=== PATIENT | female | born 1970 | race Caucasian/White ===

== ENCOUNTER 2024-09-12 17:01 | Emergency (ER) | payer MEDICAID, SELFPAY ==
--- NOTE | ~2024-09-12 | CT_ITS ---
EXAMINATION: CT HEAD WITHOUT CONTRAST CT FACIAL BONES WITHOUT CONTRAST CT CERVICAL SPINE WITHOUT CONTRAST CLINICAL INFORMATION: Trauma. COMPARISON: None available. TECHNIQUE: Imaging was performed from the skull base to vertex without intravenous administration of contrast. In addition, helical noncontrast CT imaging was acquired through the cervical spine and facial bones and source images were reviewed along with axial reconstructions and sagittal and coronal MPRs. This CT examination was performed using dose optimization techniques as appropriate, variously including the following: *Automated exposure control. *Adjustment of mA and/or kV according to patient size (this includes techniques or standardized protocols for targeted exams where dose is matched to indication/reason for exam; i.e. extremities or head). *Use of iterative reconstruction technique. DLP: 1369 mGy-cm FINDINGS: Head: There is no evidence of acute intracranial hemorrhage or edematous territorial infarction. Palacios-white matter differentiation is preserved. Scattered and partially confluent hypoattenuation in the periventricular and deep white matter are consistent with moderate microangiopathy. Proportional prominence of the ventricles and sulcal spaces without evidence of obstructive hydrocephalus. No abnormal mass effect or midline shift. No extra-axial fluid collections. Mild calcific atherosclerotic disease of the intracranial internal carotid arteries. No hyperdense vessel sign. Mild subgaleal hematoma along the right aspect of the frontal bone extending into the right periorbital soft tissues, measuring up to 0.6 cm in depth. No acute osseous calvarial abnormalities. Maxillofacial Bones: No evidence of maxillofacial bone fractures. The zygomatic arches remain intact. No nasal bone fracture. The nasal septum remains midline. No evidence of mandibular or maxillary fracture. The mandibular condyles remain well-seated in their respective temporal articular grooves. Normal appearance of the intraconal and extraconal fat. No evidence of traumatic injury to the extraocular musculature or globes. Mild mucosal thickening of the paranasal sinuses. The mastoid air cells and middle ear cavities are clear. No layering fluid collections. Mild periapical lucency associated with the maxillary right canine. Cervical Spine: The atlantooccipital and atlantoaxial articulations remain well aligned. Moderate degenerative arthropathy of the atlantodental articulation. Straightening of the normal cervical lordosis. Otherwise, there is anatomic alignment of the vertebral bodies and posterior elements. No evidence of acute fracture or subluxation. The vertebral body heights are maintained. Moderate degenerative disc disease from C5-C7 with disc-osteophyte complex formation. Mild degenerative disc disease at all additional levels. There appears to be at least mild spinal canal stenosis at C5-C6. Facet and uncovertebral joint arthropathy leads to osseous encroachment on the neural foramina from C3-C7. There is no prevertebral soft tissue swelling. The thyroid gland and remaining cervical soft tissues are within normal limits. The lung apices demonstrate no abnormalities. CT/CT cervical spine wo IV con IMPRESSION: 1. No evidence of acute intracranial hemorrhage or edematous territorial infarction. Moderate underlying microangiopathy and generalized cerebral volume loss. 2. No evidence of acute fracture or traumatic subluxation of the cervical spine. Moderate multilevel degenerative spondyloarthropathy of the cervical spine. Most notably on this limited exam without intrathecal contrast, there appears to be at least mild spinal canal stenosis at C5-C6. 3. Small right frontal scalp/periorbital hematoma. No evidence of acute fracture of the maxillofacial bones. Electronically signed by: Sadi Noe DO 09/12/2024 08:11 PM [facility]
[2024-09-12 17:28] VITALS: BP 112/77; BP 114/78; PULSE 89; PULSE 94; RESP 18; TEMP 36.5; O2SAT 94; O2SAT 95; BMI 25.7
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
[2024-09-12] MEDS: OLANZapine 10 MG VIAL IM (17:45)
[2024-09-12 18:21] VITALS: PULSE 101
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
[2024-09-12 18:28] VITALS: BP 162/93; PULSE 99; RESP 18; O2SAT 94
[2024-09-12 19:30] VITALS: BP 132/72; PULSE 91; RESP 12; O2SAT 96
[2024-09-12 20:57] LABS: Appearance Urine Clear; Color Urine Yellow; Glucose Urine UA Negative (Negative); Leukocyte Esterase Urine Negative (Negative); Nitrite Urine Negative (Negative); PH 5.5 (5.0-9.0); Specific Gravity - Urine <= 1.005 (1.005-1.025); UMIC TRIGGER UACC YES; Urine Blood Moderate (2+) (Negative); Urine Ketones Negative (Negative); Urine Protein Negative (Neg-Trace)
[2024-09-12 21:08] LABS: Amphetamine Screen Urine Not Detected (Not Detect); Bacteria Urine None Seen (None Seen); Barbiturates, Urine Not Detected (Not Detect); Benzodiazepines Screen Urine Not Detected (Not Detect); Buprenorphine Scr Not Detected (Not Detect); Cannabinoid Screen Urine Not Detected (Not Detect); Cocaine Screen Urine Not Detected (Not Detect); Fentanyl, urine Not Detected (Not Detect); Hyaline Casts Urine 0-2 /LPF (0-2); Methadone Screen, Urine Not Detected (Not Detect); Opiate Screen Urine Not Detected (Not Detect); Oxycodone Screen Urine Not Detected (Not Detect); Phencyclidine Screen Urine Not Detected (Not Detect); RBC Urine 0-2 /HPF (0-2); Squamous Epithelial Cell Urine 0-2 /HPF (0-2); WBC Urine 0-5 /HPF (0-5)
[2024-09-12 21:58] VITALS: BP 117/65; PULSE 86; RESP 18; TEMP 36.7; O2SAT 97
--- NOTE | 2024-09-12 22:17 | PC.NURSE ---
Pt assisted to bedside commode.
[2024-09-13 00:30] VITALS: BP 119/73; PULSE 84; RESP 16; TEMP 37.2; O2SAT 97
[2024-09-13 02:16] VITALS: BP 113/68; PULSE 95; RESP 16; TEMP 36.6; O2SAT 97
--- NOTE | 2024-09-13 02:29 | PC.NURSE ---
pt is sleeping at this time, no sign of distress, laceration above right eye has bleeding controlled.
[2024-09-13 05:40] VITALS: BP 126/78; PULSE 98; RESP 18; TEMP 36.3; O2SAT 97
[2024-09-13 12:29] VITALS: BP 126/78; PULSE 98; RESP 18; TEMP 36.3; O2SAT 97
== END 2024-09-13 12:30 | disposition home or self-care (01) ==
PROVIDERS: Emergency Provider Emergency Medicine Emergency Medical Services
DX: F10.120 Alcohol abuse with intoxication, uncomplicated (principal); Y90.9 Presence of alcohol in blood, level not specified; S00.11XA Contusion of right eyelid and periocular area, initial encounter; S00.211A Abrasion of right eyelid and periocular area, initial encounter; V48.4XXA Person boarding or alighting a car injured in noncollision transport accident, initial encounter; Y93.89 Activity, other specified; Y92.9 Unspecified place or not applicable; Y99.9 Unspecified external cause status
CPT/HCPCS: 70450; 70486; 72125; 80307; 81001; 96372; 99285; J2359

== ENCOUNTER 2024-09-13 13:23 | Emergency (ER) | payer MEDICAID, SELFPAY ==
--- NOTE | 2024-09-13 | ECG_ITS ---
Test Reason : Admitted Blood Pressure : / mmHG Vent. Rate : 090 BPM Atrial Rate : 090 BPM P-R Int : 122 ms QRS Dur : 070 ms QT Int : 344 ms P-R-T Axes : 064 065 065 degrees QTc Int : 420 ms Normal sinus rhythm Normal ECG No previous ECGs available Referred By: Jayleen Bobo Electronically Signed By:Christiano Catherine
[2024-09-13 13:32] VITALS: BP 177/95; PULSE 117; RESP 16; TEMP 36.6; O2SAT 98; BMI 21.5
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
[2024-09-13 14:11] VITALS: BP 192/101; PULSE 119; RESP 18; TEMP 36.8; O2SAT 96
--- NOTE | 2024-09-13 14:26 | MHC.RECOVRN ---
Received Addiction Medicine consult for etoh, seeking detox. Consult deferred due to SI. CARE Team to see pt prior to recovery.
[2024-09-13 14:39] LABS: MANUAL DIFF FLAG NO
[2024-09-13 14:40] LABS: Basophils Absolute Auto 0.1 X10*3/uL (0.0-0.2); Basophils Percent Auto 0.7 % (0-2); Hematocrit 42.4 % (37.0-47.0); Imm Gran Abs Auto 0.02 X10*3/uL (0.00-0.03); Imm Gran Pct Auto 0.3 % (0.0-0.4); Lymphocytes Absolute Auto 1.1 X10*3/uL (1.2-4.9); Lymphocytes Percent Auto 15.8 % (20-40); Mean Corpuscular HGB Conc 35.4 g/dl (31.0-35.0); Mean Corpuscular Hemoglobin 33.9 pg (27.0-33.0); Mean Corpuscular Volume 95.9 fL (80.0-98.0); Monocytes Absolute Auto 0.4 X10*3/uL (0.1-1.2); Monocytes Percent Auto 5.5 % (2-11); Neutrophils Absolute Auto 5.5 x10*3/uL (2.0-8.3); Neutrophils Percent Auto 77.7 % (45-73); Platelet Count 166 X10*3/uL (160-400); Red Blood Count 4.42 X10*6/uL (4.20-5.50); Red Cell Distribution Width 12.2 % (11.0-16.0); White Blood Count 7.1 X10*3/uL (4.8-10.8)
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
[2024-09-13 14:55] LABS: Ethanol < 10 mg/dL
[2024-09-13 14:57] LABS: Alanine Aminotransferase 30 U/L (0-31); Albumin Level 4.8 g/dL (3.5-5.0); Alkaline Phosphatase 49 U/L (39-117); Anion Gap 18 (12-20); Aspartate Amino Transferase 59 U/L (5-31); Bilirubin Total 0.8 mg/dL (0.0-1.0); Blood Urea Nitrogen 14 mg/dL (9-16); Calcium 9.1 mg/dL (8.4-10.2); Carbon Dioxide 23 mmol/L (22-29); Chloride 102 mmol/L (96-108); Creatinine Clr Calc Pharmacy 69.6; Estimated Glomerular Filt Rate > 60; Glucose Random 222 mg/dL (60-115); Lipase 27 U/L (8-78); Magnesium 1.6 mg/dL (1.6-2.6); Potassium 4.1 mmol/L (3.3-5.1); Sodium 139 mmol/L (135-145); Total Protein 7.9 g/dL (6.5-8.0)
[2024-09-13 15:00] LABS: Acetaminophen LAB < 3 mcg/mL (<30); Salicylate < 5.0 mg/dL (15-30)
--- NOTE | 2024-09-13 15:38 | PC.NURSE ---
Assumed care of patient at 1445, patient appears to be in no apparent distress this afternoon, CIWA score of 7, resting comfortably in room at this time
[2024-09-13 16:08] LABS: Appearance Urine Clear; Color Urine Yellow; Glucose Urine UA 250 mg/dL (Negative); Leukocyte Esterase Urine Negative (Negative); Nitrite Urine Negative (Negative); PH 5.5 (5.0-9.0); Specific Gravity - Urine 1.025 (1.005-1.025); UMIC TRIGGER UACC YES; Urine Blood Large (3+) (Negative); Urine Ketones >=160 mg/dL (Negative); Urine Protein 30 (1+) mg/dL (Neg-Trace)
[2024-09-13 16:11] LABS: Bacteria Urine None Seen (None Seen); Hyaline Casts Urine 0-2 /LPF (0-2); WBC Urine 0-5 /HPF (0-5)
[2024-09-13] MEDS: LORazepam 1 MG TABLET PO (16:13)
[2024-09-13 16:18] LABS: Amphetamine Screen Urine Not Detected (Not Detect); Barbiturates, Urine Not Detected (Not Detect); Benzodiazepines Screen Urine Not Detected (Not Detect); Buprenorphine Scr Not Detected (Not Detect); Cannabinoid Screen Urine Not Detected (Not Detect); Cocaine Screen Urine Not Detected (Not Detect); Fentanyl, urine Not Detected (Not Detect); Methadone Screen, Urine Not Detected (Not Detect); Opiate Screen Urine Not Detected (Not Detect); Oxycodone Screen Urine Not Detected (Not Detect); Phencyclidine Screen Urine Not Detected (Not Detect)
[2024-09-13 16:20] LABS: Glucose, Whole Blood 205 mg/dL (60-115)
[2024-09-13 16:21] LABS: Prothrombin Time Whole Bld POC 35.2 sec (11.1-13.5); ~PT, ~INR - Anti Coag Clinic 2.9 (0.9-1.1)
[2024-09-13 17:11] LABS: UPreg QC Valid YES; Urine Pregnancy NEGATIVE (NEGATIVE)
--- NOTE | 2024-09-13 18:00 | MHC.CARE ---
Pt has been accepted to [address] [place] [address] Cueto, ETA BREE, no n2n required
[2024-09-13 19:50] VITALS: BP 150/90; PULSE 90; RESP 18; TEMP 37; O2SAT 99
== END 2024-09-13 19:53 ==
PROVIDERS: Physician Assistant; Physician Assistant Medical; Emergency Provider Student in an Organized Health Care Education/Training Program; PCP Nurse Practitioner
DX: F10.20 Alcohol dependence, uncomplicated (principal); Y90.0 Blood alcohol level of less than 20 mg/100 ml; R45.851 Suicidal ideations; Z51.81 Encounter for therapeutic drug level monitoring; Z79.899 Other long term (current) drug therapy; Z71.41 Alcohol abuse counseling and surveillance of alcoholic
CPT/HCPCS: 36415; 80053; 80143; 80179; 80307; 81001; 81025; 82947; 83690; 83735; 85025; 85610; 93005; 99285

== ENCOUNTER → 2024-09-13 16:54 | Outpatient (BNV) | payer MEDICAID, SELFPAY | PROVIDERS: Emergency Provider Student in an Organized Health Care Education/Training Program; PCP Nurse Practitioner; Visit Provider Internal Medicine Cardiovascular Disease | DX: R45.851 Suicidal ideations (principal); F10.20 Alcohol dependence, uncomplicated | CPT/HCPCS: 93010 ==

== ENCOUNTER 2025-06-29 16:07 | Emergency (ER) | payer MEDICAID, SELFPAY ==
[2025-06-29 16:42] VITALS: BP 139/60; PULSE 75; RESP 16; TEMP 36.8; O2SAT 95; BMI 22.7
--- NOTE | 2025-06-29 16:48 | ED_ITS ---
HPI - General Adult General Chief complaint: General Medical Stated complaint: med clearance Time Seen by Provider: 06/29/25 17:21 Source: patient and RN notes reviewed Mode of arrival: ambulatory Limitations: no limitations History of Present Illness ED Provider: María Pastor PA-C HPI narrative: This is a 54-year-old female, with a past medical history of alcohol use disorder, who presents emergency department from [facility] and was sent to the emergency room for ?medical clearance? as she went to the [facility] and did a Breathalyzer test which she failed and needs medical clearance to return back to the [facility]. She states that she has not drank in over 9 months. No other drug use. She states that she is feeling well, no current complaints. MD complaint: U tox Relieving factors: none Exacerbating factors: none Associated symptoms: denies other symptoms Treatments prior to arrival: none Related Data Home Medications ?Medication ?Instructions ?Recorded ?Confirmed bupropion HCl 150 mg tablet,12 hr 150 mg PO BID 09/13/24 sustained-release diclofenac sodium 1 % topical gel 1 inch topical BID P RN pain 09/13/24 09/13/24 hydroxyzine HCl 50 mg tablet 50 mg PO TID PRN anxiety 09/13/24 09/13/24 metformin 1,000 mg tablet 1,000 mg PO BID 09/13/2403/02 omeprazole 20 mg capsule,delayed 20 mg PO QAM 09/13/24 09/13/24 release sertraline 100 mg tablet 100 mg PO DAILY 09/13/2403/02 simvastatin 20 mg tablet 20 mg PO BEDTIME 09/13/24 trazodone 100 mg tablet 100 mg PO BEDTIME 09/13/24 1 11/14/23 Allergies Allergy/AdvReac Type Severity Reaction Status Date / Time No Known Allergies Allergy Verified 06/29/25 16:46 Review of Systems Review of Systems: Constitutional : No Fever, No Chills ENT/Mouth : No sore throat, No Rhinorrhea Eyes: No Eye Pain, No Swelling, No Redness Cardiovascular : No Chest Pain, No SOB Respiratory : No Cough, No Sputum Gastrointestinal : No Nausea, No Vomiting, No Diarrhea, No abdominal Pain Genitourinary : No Dysuria, No Hematuria Musculoskeletal : No joint pain, No Myalgias, No Joint Swelling Skin : No Skin Lesions Neuro : No Weakness, No Numbness, No Headache All other systems reviewed and are negative Yes all other systems are reviewed and are negative Constitutional: Constitutional: Reports as per [facility] Past Medical History Attestation statement: The following information was validated with the patient. Social History Social History Alcohol intake: current Alcohol intake frequency: 3 or more drinks per day Alcohol type: hard liquor Advance Directives: No Advance Directives Information Provided: No Do you have a plan to hurt others: No Plan Physical Exam ED Exam Exam: General: Awake, alert, and oriented X3. No acute distress. HEENT: Normal inspection CVS: Normal heart rate and rhythm. Pulses normal. Respiratory: No respiratory distress Skin: Warm, dry, no rashes noted to exposed skin. Normal skin color. Normal skin turgor. Extremities: Normal to inspection Neuro: Oriented X 3. No motor deficit. No sensory deficit. Vital Signs: Vital Signs - 24 hr 06/29/25 16:42 06/29/25 18:31 Temperature 98.3 F 98.1 F Pulse Rate 75 72 Respiratory Rate 16 16 Blood Pressure 139/60 132/58 L Pulse Oximetry 95 96 Oxygen Delivery Method Room Air Room Air BMI result Body Mass Index 22.7 Medical Decision Making Medical Decision Making MDM Narrative: This is a 54-year-old female, with a past medical history of opioid use disorder, who presents emergency department from [facility] for medical clearance. She states that she had a positive Breathalyzer test and they are requesting a drug screen and etoh level. Patient is well-appearing, speaking in full sentences, under no acute distress. At this time, she is clinically sober. Will obtain ethyl alcohol level, as well as U tox. 7:00 PM 06/29/2025 (María Pastor PA-C): Patient did test positive for alcohol, alcohol level of 103. She is clinically sober, no indication for further workup at this time as she has no current complaints. Discussed results with patient. She has no current concerns. No other complaints or concerns at this time. Differential Diagnosis Differential Diagnoses: The differential diagnosis associated with the presentation includes Alcohol use disorder, substance use, polysubstance abuse, depression, anxiety Lab Data [facility] Lab Attestation statement: I reviewed the patient's lab results. See above Labs: Lab Results 06/29/25 06/29/25 Range/Units 17:05 17:20 Urine Opiates Screen Not Detected (Not Detect) Ur Buprenorphine Scrn Not Detected (Not Detect) ng/mL Ur Oxycodone Screen Not Detected (Not Detect) ng/mL Urine Methadone Screen Not Detected (Not Detect) ng/mL Urine Fentanyl Screen Not Detected (Not Detect) Ur Barbiturates Screen Not Detected (Not Detect) Ur Phencyclidine Scrn Not Detected (Not Detect) Ur Amphetamines Screen Not Detected (Not Detect) U Benzodiazepines Scrn Not Detected (Not Detect) Urine Cocaine Screen Not Detected (Not Detect) U Marijuana (THC) Screen Not Detected (Not Detect) Ethyl Alcohol 103 mg/dL Discharge Plan Discharge Clinical Impression: Alcohol use disorder Patient Disposition: Home, Self-Care Instructions: Alcohol Use Disorder (ED) Additional Instructions: You were seen in the emergency department after being sent here from the emergency room for medical clearance. Your ethanol level was 103, which is a positive result. Your urine drug screen did not test positive for any illicit substances. At this point, you are medically cleared, there is no indication for us to further observe you, please follow-up with Diane, please return with any new or worsening symptoms. If any symptoms including but not limited to severe chest pain or shortness of breath occur, please seek emergent care. Prescriptions: No Action bupropion HCl 150 mg tablet sustained-release 12 hr 150 mg PO BID sertraline 100 mg tablet 100 mg PO DAILY hydroxyzine HCl 50 mg tablet 50 mg PO TID PRN (Reason: anxiety) trazodone 100 mg tablet 100 mg PO BEDTIME simvastatin 20 mg tablet 20 mg PO BEDTIME metformin 1,000 mg tablet 1,000 mg PO BID omeprazole 20 mg capsule,delayed release(DR/EC) 20 mg PO QAM diclofenac sodium 1 % gel 1 inch topical BID PRN (Reason: pain) Interventions: ED Discharge Assessment Last Done: 06/29/25 18:31 Discharge Date/Time: 06/29/25 18:32 Print Language: Choose Not To Answer
--- OUTSIDE RECORDS SUMMARY | 2025-06-29 17:27 | XMS_ITS | Clinical Summary ---
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 Name Role Phone Jace Meadows TU Primary Care Provider [phone] Source Comments PLEASE NOTE, if this patient is a minor, it may be UNLAWFUL to discuss sensitive information that is contained in these records (such as FAMILY PLANNING, MENTAL HEALTH or SUBSTANCE ABUSE) with the minor patient's parent or other person without the patient's specific authorization.[facility] Allergies Active Allergy Reactions Criticality Noted Date Comments Oxycodone-Acetaminop hen Hives,Nausea and Vomiting 03/20/2015 Other reaction(s): [D]Nausea and vomiting Medications ibuprofen 600 mg tabletIndications: Bilateral adhesive capsulitis of shoulders,Chronic bilateral low back pain with bilateral sciatica,Primary osteoarthritis of both knees,Chronic joint pain Take 1 Tablet by mouth 4 (four) times daily as needed for pain 120 Tablet 2 06/08/20 23 Active naltrexone (DEPADE) 50 mg tabletIndications: H/O ETOH abuse Take 1 Tablet by mouth once daily 90 Tablet 1 01/30/20 24 Active acetaminophen (TYLENOL) 500 mg tabletIndications: Bilateral adhesive capsulitis of shoulders,Chronic bilateral low back pain with bilateral sciatica,Cervicoge kathrine headache Take 1 Tablet by mouth every 6 (six) hours as needed for pain 120 Tablet 2 01/30/20 24 Active buPROPion SR (WELLBUTRIN SR) 150 mg 12 hr tabletIndications: Current moderate episode of major depressive disorder without prior episode (CMS & HHS-HCC) Take 1 Tablet by mouth 2 (two) times daily 180 Tablet 1 11/02/19 25 Active diclofenac sodium (VOLTAREN) 1 % gelIndications:Aj ateral adhesive capsulitis of shoulders,Chronic bilateral low back pain with bilateral sciatica,Primary osteoarthritis of both knees,Chronic joint pain Apply topically 2 (two) times daily as needed for pain 100 g 2 01/14/20 25 Active alcohol swabs (ALCOHOL PREP PADS) Check blood sugar once daily. Three days per week check your blood sugar in the morning before you eat . Four days per week check your blood sugar 2 hours after your largest meal. 100 Each 01/14/20 25 Active blood sugar diagnostic (FREESTYLE TEST) stripsIndications: Type 2 diabetes mellitus with hyperglycemia, without long-term current use of insulin ([facility]) Check blood sugar daily. Three days per week check your blood sugar in the morning before you eat . Four days per week check your blood sugar 2 hours after your largest meal. E11.65. Freestyle Lite 100 Each 01/14/20 25 Active blood-glucose meter (FREESTYLE LITE METER) monitoring kitIndications:Typ e 2 diabetes mellitus without complication, without long-term current use of insulin ([facility]) Check blood sugar once daily. Three days per week check your blood sugar in the morning before you eat . Four days per week check your blood sugar 2 hours after your largest meal. 1 Each 01/14/20 25 Active hydrOXYzine HCL (ATARAX) 50 mg tabletIndications: Current moderate episode of major depressive disorder without prior episode ([facility]) Take 1 Tablet by mouth 3 (three) times daily as needed for anxiety or sleep 270 Tablet 1 01/14/20 25 Active lancets (FREESTYLE LANCETS) 28 gaugeIndications:T ype 2 diabetes mellitus without complication, without long-term current use of insulin ([facility]) Check blood sugar once daily. Three days per week check your blood sugar in the morning before you eat . Four days per week check your blood sugar 2 hours after your largest meal. 100 Each 01/14/20 25 Active methocarbamoL (ROBAXIN) 750 mg tablet Take 1 Tablet by mouth 3 (three) times daily as needed for other reason (muscle spams) 180 Tablet 1 01/14/20 25 Active metFORMIN (GLUCOPHAGE) 1,000 mg tabletIndications: Type 2 diabetes mellitus with hyperglycemia, without long-term current use of insulin ([facility]) Take 1 Tablet by mouth 2 (two) times daily with a meal 180 Tablet 1 01/14/20 25 Active prazosin (MINIPRESS) 2 mg capsule Take 1 Capsule by mouth nightly at bedtime 90 Capsule 1 01/14/20 25 Active PROAIR HFA 90 mcg/actuation inhaler Inhale 2 Puffs into the lungs every 4 (four) hours as needed for shortness of breath or wheezing 18 g 1 01/14/20 25 Active sertraline (ZOLOFT) 100 mg tabletIndications: Current moderate episode of major depressive disorder without prior episode ([facility]) Take 2 Tablets by mouth once daily 180 Tablet 1 01/14/20 25 Active simvastatin (ZOCOR) 20 mg tabletIndications: Mixed hyperlipidemia Take 1 Tablet by mouth nightly at bedtime 90 Tablet 1 01/14/20 25 Active traZODone (DESYREL) 100 mg tabletIndications: Current moderate episode of major depressive disorder without prior episode ([facility]) Take 1 Tablet by mouth nightly at bedtime 90 Tablet 1 01/14/20 25 Active empagliflozin (JARDIANCE) 10 mg tabIndications:Typ e 2 diabetes mellitus without complication, without long-term current use of insulin ([facility]) Take 1 Tablet by mouth once daily 90 Tablet 1 01/15/20 25 Active omeprazole (PRILOSEC) [address] capsuleIndications :Gastroesophageal reflux disease, unspecified whether esophagitis present Take 1 Capsule by mouth every morning before breakfast. 90 Capsule 1 06/12/20 25 Active omeprazole (PRILOSEC) [address] capsuleIndications :Gastroesophageal reflux disease, unspecified whether esophagitis present Take 1 Capsule by mouth every morning before breakfast 90 Capsule 1 11/01/19 25 025 Discontin ued(Reord er (E-Cancel Not Sent)) omeprazole (PRILOSEC) [address] capsuleIndications :Gastroesophageal reflux disease, unspecified whether esophagitis present Take 1 Capsule by mouth every morning before breakfast. 90 Capsule 1 06/11/20 25 025 Discontin ued(Reord er (E-Cancel Not Sent)) Active Problems Problem Noted Date Diagnosed Date History of suicidal ideation 09/26/2024 Overview (09/26/2024): 09/12/24: [facility] for SI ideation d/c to treatment on 09/26/24 S/P ORIF (open reduction internal fixation) seng [place] 01/30/2024 Overview (01/30/2024): 10/13/23 Dr Raines ORIF left distal fibular fracture at [facility]. Diabetes mellitus, type 2 ([facility]) 2023 Primary osteoarthritis of both knees 06/08/2023 Posttraumatic stress disorder 02/08/2022 Overview (02/08/2022): Discharged [facility]06/28/17, unknown Dx. Meds: Nicotine patch 14 mg QD Prazosin 2 mg PO qHS Abilify 5 mg PO QD Zoloft 50 mg Po QD Metformin 1000 mg PO BID Vistaril 25 mg q8h PRN Humalog sliding scale Trazodone 50 mg PO qHS Major depressive disorder 02/08/2022 Overview (02/08/2022): Discharged [facility]06/28/17, unknown Dx. Meds: Nicotine patch 14 mg QD Prazosin 2 mg PO qHS Abilify 5 mg PO QD Zoloft 50 mg Po QD Metformin 1000 mg PO BID Vistaril 25 mg q8h PRN Humalog sliding scale Trazodone 50 mg PO qHS Insomnia 02/08/2022 Right lumbar radiculitis 02/08/2022 Chronic bronchitis ([facility]) 02/08/2022 Essential hypertension 06/18/2021 H/O colonoscopy 06/18/2021 Overview (06/18/2021): 10/08/15 EGD/ colonoscopy at [facility]. Normal colonoscopy. Subclinical hypothyroidism 05/18/2021 Hyponatremia 05/18/2021 Mixed hyperlipidemia 05/18/2021 Current moderate episode of major depressive disorder without prior episode ([facility]) 05/07/2021 Tobacco use 05/07/2021 Type 2 diabetes mellitus wit hout complication, without long-term current use of insulin ([facility]) 01/31/2018 H/O mammogram 10/12/2017 Overview (07/20/2023): Mammo 10/04/17 at [facility] BIRADS1 Mammo 07/12/23 BIRADS 1 Gastroesophageal reflux disease 10/30/2015 Chronic low back pain 10/30/2015 Overview (09/15/2016): [facility] Pain management Doing PT 10/30/[address] Dorman. 11/27/15 F/u with Dr Sen, Dr Oconnell Pain c/o lumbar radiculitis over the S1 dermatome as well as axial back pain c/w lumbar facet arthropathy over the L3-4, L4-5, aL5-S1. She is candidate for Lumbar epidural steroid injection at L5-S1; if fails to benefit may consider diagnostic intra=articular facet injections in the fugure to decrease exposure to steroid and identify coexistent pain generators. 12/08/15 [facility] for epidural steroid injection, Dr Prado to L5-S1 02/18/16 [facility] Pain management, good result, pain relief x 2 months, plan to repeat procedure. 03/19/16 [facility] Pain Management, repeat L5-S1 injection 07/01/16 [facility] Pain Management, seen for f/u. Pt with good relief x 3 months. Will repeat facet injection L4-5, and L5-S1 07/12/15 [facility] Pain Management seen for repeat injection L4-L5 and L5-S1. F/u 2 months 08/17/16 [facility] ED for low back pain after coughing fit, given Flexeril and ibuprofen 08/26/16 [facility] Pain Management , trigger point injection given f/u 3 week H/O ETOH abuse 10/30/2015 Overview (10/30/2015): At [employer] [place]. Quit 2014. Incidental lung nodule 08/27/2015 Overview (02/27/2025): Seen on CT of abdomen 08/08/15 at [facility]. 7 mm nodule in lower L lung Repeat CT scan 09/05/15 at [facility] shows 5cm x 8 cm in lower L lung. Referred to pulm. 11/13/[address] Shaylee Whittaker at [facility] Pulmonolody. Spirometry in office normal. Nodule stable for 2+ years. Advised smoking cessation, pt offered biopsy and declined. 12/27/22 LDCT shows stable nodule in L lower lung. Repeat LDCT in 1 year. 02/16/24 LDCT shows stable lung nodules, LRADS 2, repeat 12 months 02/22/25 LDCT shows stable lung nodule LRADS 2 repeat in 12 months. Pap smear, low-risk 12/04/2012 Overview (05/11/2021): Pap 12/04/12 at [facility]. Neg for malignancy, neg HPV. Pap 01/31/18 NILM, Neg HPV. 05/07/21 NILM, Neg HPV. Repeat 5 years. Resolved Problems Problem Noted Date Diagnosed Date Resolved Date Elevated blood pressure read ing in office without diagnosis of hypertension 05/07/20212021 Homelessness 11/30/2018 06/18/2021 H/O psychiatric hospitalization 07/08/2017 02/08/2022 Overview (07/08/2017): Discharged [facility]06/28/17, unknown Dx. Meds: Nicotine patch 14 mg QD Prazosin 2 mg PO qHS Abilify 5 mg PO QD Zoloft 50 mg Po QD Metformin 1000 mg PO BID Vistaril 25 mg q8h PRN Humalog sliding scale Trazodone 50 mg PO qHS Acute sinusitis 08/23/2016 05/29/2021 Overview (08/23/2016): 08/15/16 [facility] ED for acute sinusitis and R AOM. CXR negative. Given Augmentin and Tessalon pearls Irritable bowel syndrome 08/27/2015 Overview (10/30/2015): ED visit 08/08/[address] scan of abdomen and pelvis with no determined abdominal pathology. [facility] Gastro 09/17/15, seen by DARNELL Correa: Advised restricting fodmaps, likely IBS. Scheduled colonoscopy and EGD. 10/20/15: S/p colonoscopy and EGD. Determined to have IBS. Advised to follow FODMAPS diet. Urinary incontinence without sensory awareness 08/27/2015 05/07/2021 Encounters Date Type Department Care Team Description 04/04/2025 Interim Notes [address] [id number] Zee Ahumada, Community Health Worker from Last 3 Months Immunizations Immunization Administration Dates Next Due Flu, Multi Dose 0.5 ML 06/19/2019 Flu, Preservative Free 12/07/2021,06/19/2019,02/2017 Hep B, Adult/Adol ([id number]/RECOMBIVAX-ADULT) 07/17/2019,02/09/2019,01/10/2019 INFLUENZA, SEASONAL, INJECTABLE 08/27/2015,11/22 PFIZER COVID VACCINE, PURPLE CAP, 12+ 12/07/2021 ,05/28/2021,05/07/2021 PNEUMOCOCCAL CONJUGATE PCV 13 12/07/2021 PNEUMOCOCCAL POLYSACCHARIDE PPV23 (Pneumovax 23) 09/13/2017 Pfizer-BioNTech COVID-19 Vac cine Bivalent, (CLAYTON PFIZER-BIONTECH COVID-19 VACCINE BIVALENT, ([place] CAP 12/22/2022 TDAP 08/10/2019,01/10/2019,05/03/2013 ZOSTER VACCINE, RECOMBINANT (SHINGRIX) ,06/18/2021 Family History Medical History Relation Name Comments Other (See Comments) Brother Crohns No Known Problems Daughter Cancer Father Esophageal CA Diabetes Father COPD Mother Cancer Mother Lung Hypertension Mother No Known Problems Son 1 No Known Problems Son 2 Heart attack Neg Mental illness Neg Relation Name Status Comments Brother Alive Daughter Alive Father Maternal Grandfather Maternal Grandmother Mother Paternal Grandfather Paternal Grandmother Son 1 Alive Son 2 Alive Social History Tobacco Use Types Packs/Day Years Used Date Smoking Tobacco: Every Day Cigarettes 0.5 41.7 Started: 1983 Cigars Smokeless Tobacco: Never Tobacco Cessation:Ready to Q uit: Not Asked; Counseling Given: Not Answered Comments:Started smoke age 13 Alcohol Use Standard Drinks/Week Comments Not Currently 14 (1 standard drink = 0.6 oz pu re alcohol) Sober since Jul 2022 Social Connections Answer Date Recorded Connectedness 0 05/07/2021 Financial Resource Strain Answer Date R ecorded Financial Resource Strain 0 2020 Stress Answer Date Recorded Stress 0 05/07/2021 Physical Activity Answer Date Recorded Physical Activity 0 06/03/2019 Food Insecurity Answer Date Recorded Food 0 05/07/2021 Transportation Needs Answer Date Record ed Transportation 0 05/07/2021 Housing Stability Answer Date Recorded Housing 0 05/07/2021 Safety and Environment Answer Date Artie rded Safety 0 06/18/2021 Utilities Answer Date Recorded Utilities 0 05/07/2021 Employment Answer Date Recorded Stress 0 12/28/2021 Comments No Sex and Gender Information Value Date Recorded Sex Assigned at Female 09/13/2017 10:11 AM PST Legal Sex Female 10:11 AM PDT Gender Identity Female 09/13/2017 10:11 AM PST Sexual Orientation Straight 09/13/2017 10 :11 AM PST Occupation Industry Job Start Date Job End Date No Not on file Not on file Not on file Last Filed Vital Signs Vital Sign Reading Time Taken Comments Blood Pressure 100/70 01/11/2025 10:23 AM EDT Pulse 65 01/11/2025 10:23 AM EDT Temperature 36.8 C (98.2 F) 01/11/2025 10:23 AM EDT Respiratory Rate 16 01/11/2025 10:23 AM EDT Oxygen Saturation 97% 01/11/2025 10:23 AM EDT Inhaled Oxygen Concentration - - Weight 62.7 kg (138 lb 3.2 oz) 01/11/2025 10:23 AM EDT Height 167.6 cm (5' 6 ) 01/11/2025 10:23 AM EDT Body Mass Index 22.31 01/11/2025 10:23 AM EDT Plan of Treatment Health Maintenance Due Date Last Done Comments Dental Examination 1970 HPV Screening 1970 Imm-Hepatitis A (1 of 2 - Ri sk 2-dose series) 1989 CT Colonography 2015 FIT/gFOBT 2015 Fecal DNA 2015 Flexible Sigmoidoscopy 2015 Annual Wellness (Adult): Indicated (All Coverage) 12/23/2023 12/22/2022, 05/07/2021, 01/10/2019, Additional history exists LTBI Screening (#1) 12/23/2023 12/22/2022 Pap Smear 05/07/2024 05/07/2021, 01/09, 01/31/2018, Additional history exists Depression Monitoring 04/12/2025 01/11/2025 , 07/12/2024, 01/30/2024, Additional history exists [id number] ( season) 2025 12/22/2022, 12/07/2021, 05/28/2021, Additional history exists Imm-Influenza (#1) 2025 12/07/2021, 0 06/19/2019, 06/19/2019, Additional history exists Breast Cancer Screening (Mammogram) 07/12/2025 07/12/2023 Lipid Screening 07/12/2025 07/12/2024, 12/08, 05/11/2021, Additional history exists Colonoscopy 10/08/2025 10/08/2015 Colorectal Cancer Screening 10/08/2025 Tobacco Cessation Counseling (#1) 2025 01/30/2024, 12/22/2022, 12/07/2021, Additional history exists Anxiety Screening 01/11/2026 01/11/2025 Diabetes Screening 01/11/2026 01/11/2025, 1 , 07/12/2024, Additional history exists TSH Monitoring 01/11/2026 01/11/2025, 12/08, 05/11/2021, Additional history exists Lung Cancer Screening 02/22/2026 02/22/2025 , 02/22/2025, 02/16/2024, Additional history exists Cervical Cancer Screening 05/07/2026 Pap + HPV 05/07/2026 05/07/2021 Imm-Pneumococcal 50+ (3 of 3 - PCV20 or PCV21) 12/07/2026 12/07/2021, 09/13/2017 Imm-DTaP/Tdap/Td (4 - Td or Tdap) 08/10/2029 08/10/2019, 01/10/2019, 05/03/2013 Imm-Hepatitis B Completed 07/17/2019, 05/0 12/2018, 01/10/2019 Imm-Zoster, Recombinant Completed 12/07/2021, 06/18 HIV Screening Discontinued 12/22/2022 Hepatitis C Screening Completed 12/22/2022, 015 Alcohol and Drug Screen Completed 01/12/20 25, 01/30/2024, 12/22/2022, Additional history exists Cervical Ablation/Cold-Knife Conization Discontinued Cervical Cryotherapy Discontinued Colposcopy Discontinued Endometrial Biopsy Discontinued Excision/Leep Discontinued HPV Genotyping Discontinued Vaginal Pap Discontinued Vulvoscopy Discontinued Procedures Procedure Name Priority Date/Time Associated Diagnosis Comments LOW DOSE CT LUNG SCREENING Routine 02/22/2025 3:00 AM EDT Tobacco dependence TSH W/RFLX FREE T4 Routine 01/11/2025 11 :31 AM EDT Type 2 diabetes mellitus without complication, without long-term current use of insulin ([facility]) HEMOGLOBIN GLYCOSYLATED A1C Routine 01/11/2025 11:31 AM EDT Type 2 diabetes mellitus without complication, without long-term current use of insulin ([facility]) LIPIDS W RFLX TO DIRECT LDL Routine 07/12/2024 11:52 AM EDT Mixed hyperlipidemia REFERRAL FOR MAMMOGRAM Routine 07/12/2023 3:00 AM EDT Encounter for screening mammogram for malignant neoplasm of breast HIV 1/2 AG & AB W/RFLX (4TH GEN) Routine 12/22/2022 9:56 AM EDT Weight loss QUANTIFERON-TB GOLD PLUS Routine 12/22/2022 9:56 AM EDT Weight loss ACUTE HEPATITIS PANEL W/RFLX Routine 12/22/2022 9:56 AM EDT Weight loss THIN PREP PAP + HPV RNA E6/E7 (Q) Routine 05/07/2021 10:41 AM EDT Screening for cervical cancer HISTORIC COLONOSCOPY 10/08/2015 12:00 AM EST from Last 3 Months or Most Recently Relevant to Health Maintenance Results * Lung Cancer Screening Referral, Low Dose Chest CT Order (02/22/2025 3:00 AM EDT) 02/22/2025 3:00 AM EDT us Jace Meadows NP IMG CT Final Result * TSH W/RFLX FREE T4 (01/11/2025 11:31 AM EDT) TSH W/REFLEX TO FT4 1.73 0.40 - 4.50 mIU/L [employer] Comment: Reference Range > or = 20 Years 0.40-4.50 Ranges First trimester 0.26-2.66 Second trimester 0.55-2.73 Third trimester 0.43-2.91 Blood Blood / Unknown 01/11/2025 1 1:31 AM EDT 01/11/2025 11:32 AM EDT [facility] [employer] - 01/12/2025 6:41 PM EDT FASTING:NO us Jace Meadows NP LAB - BLOOD DRAW Edited Result - Final [employer] [address] [place] [id number], [employer] [address] [place] [id number] * (ABNORMAL) HEMOGLOBIN GLYCOSYLATED A1C (01/11/2025 11:31 AM EDT) HEMOGLOBIN A1C 7.0(H) <5.7 % of total Hgb [employer] Comment: For someone without known diabetes, a hemoglobin A1c value of 6.5% or greater indicates that they may have diabetes and this should be confirmed with a follow-up test. For someone with known diabetes, a value <7% indicates that their diabetes is well controlled and a value greater than or equal to 7% indicates suboptimal control. A1c targets should be individualized based on duration of diabetes, age, comorbid conditions, and other considerations. Currently, no consensus exists regarding use of hemoglobin A1c for diagnosis of diabetes for children. Blood Blood / Unknown 01/11/2025 1 1:31 AM EDT 01/11/2025 11:32 AM EDT [employer] - 01/12/2025 6:41 PM EDT FASTING:NO us Jace Meadows NP LAB - BLOOD DRAW Edited Result - Final Performing Organization Address [facility]/ZIP Co de Phone Number [employer] [address] [address], [employer] [address] [phone] * (ABNORMAL) LIPIDS W RFLX TO DIRECT LDL (07/12/2024 11:52 AM EDT) [facility] Signature CHOLESTEROL, TOTAL 155 <200 mg/dL [facility] HDL CHOLESTEROL 67 > OR = 50 mg/dL [facility] TRIGLYCERIDES 191(H) <150 mg/dL [facility] LDL-CHOLESTEROL 62 99 mg/dL (calc) [employer] Comment: Reference range: <100 Desirable range <100 mg/dL for primary prevention; <70 mg/dL for patients with CHD or diabetic patients with > or = 2 CHD risk factors. LDL-C is now calculated using the Quintin-Linda calculation, which is a validated novel method providing better accuracy than the Friedewald equation in the estimation of LDL-C. Quintin SS et al. JOSEF. 2013;310(19): 7470-9554 (http://education.[employer]/faq/QAE415) CHOL/HDLC RATIO 2.3 <5.0 (calc) [employer] NON-HDL CHOLESTEROL 88 <130 mg/dL (calc) [employer] Comment: For patients with diabetes plus 1 major ASCVD risk factor, treating to a non-HDL-C goal of <100 mg/dL (LDL-C of <70 mg/dL) is considered a therapeutic option. Blood Blood / Unknown 07/12/2024 1 1:52 AM EDT 07/12/2024 11:53 AM EDT Narrative [facility] - 07/13/2024 5:48 AM EDT FASTING:YES us Mack [facility] LAB - BLOOD DRAW Final Resul t Performing Organization Address City/[facility]/ZIP Co de Phone Number [facility] [address] [address], [place] [facility] [address] [address] * REFERRAL FOR MAMMOGRAM SCREENING (07/12/2023 3:00 AM EDT) 07/12/2023 3:00 AM EDT Helena JOHNSON IMG RFL MAMMO Edited Re sult - Final * QUANTIFERON-TB GOLD PLUS (12/22/2022 9:56 AM EDT) QUANTIFERON NEGATIVE NEGATIVE [employer] [facility] Comment: Negative test result. M. tuberculosis complex infection unlikely. NIL 0.06 IU/mL [employer] [facility] MITOGEN-NIL >10.00 IU/mL [employer] [facility] TB1-NIL <0.00 IU/mL [employer] [facility] TB2-NIL 0.00 IU/mL [facility] Comment: The Nil tube value reflects the background interferon gamma immune response of the patient's blood sample. This value has been subtracted from the patient's displayed TB and Mitogen results. Lower than expected results with the Mitogen tube prevent false-negative Quantiferon readings by detecting a patient with a potential immune suppressive condition and/or suboptimal pre-analytical specimen handling. The TB1 Antigen tube is coated with the M. tuberculosis-specific antigens designed to elicit responses from TB antigen primed CD4+ helper T-lymphocytes. The TB2 Antigen tube is coated with the M. tuberculosis-specific antigens designed to elicit responses from TB antigen primed CD4+ helper and CD8+ cytotoxic T-lymphocytes. For additional information, please refer to https://education.[employer]/faq/QYU668 (This link is being provided for informational/ educational purposes only.) Blood Blood / Unknown 12/22/2022 9 :56 AM EDT 12/22/2022 9:57 AM EDT Helena JOHNSON LAB - BLOOD DRAW Final Re sult [facility] [address] [address], [employer] [address] [phone] * HIV 1/2 AG & AB W/RFLX (4TH GEN) (12/22/2022 9:56 AM EDT) Pathologist [facility] HIV AG/AB, 4TH GEN NON-REAC TIVE NON-REAC TIVE [employer] [facility] Comment: HIV-1 antigen and HIV-1/HIV-2 antibodies were not detected. There is no laboratory evidence of HIV infection. PLEASE NOTE: This information has been disclosed to you from records whose confidentiality may be protected by state law. If your state requires such protection, then the state law prohibits you from making any further disclosure of the information without the specific written consent of the person to whom it pertains, or as otherwise permitted by law. A general authorization for the release of medical or other information is NOT sufficient for this purpose. For additional information please refer to http://education.ZuzuChe/faq/EJO898 (This link is being provided for informational/ educational purposes only.) The performance of this assay has not been clinically validated in patients less than 2 years old. Blood Blood / Unknown 12/22/2022 9 :56 AM EDT 12/22/2022 9:57 AM EDT [facility] Espitia [facility] - BLOOD DRAW Final Re sult [employer] [address] [address], [employer] [address] [id number] * HEPATITIS PANEL W/RFLX (12/22/2022 9:56 AM EDT) [facility] HEPATITIS A IGM ANTIBODY NON-REACT MANUEL NON-REACT MANUEL [facility] COMMENT [facility] HEPATITIS B SURFACE ANTIGEN NON-REACT MANUEL NON-REACT MANUEL [facility] HEPATITIS B CORE IGM ANTIBODY NON-REACT MANUEL NON-REACT MANUEL [facility] HEPATITIS C ANTIBODY NON-REACT MANUEL NON-REACT MANUEL [facility] SIGNAL TO CUT-OFF 0.04 <1.00 [employer] Comment: HCV antibody was non-reactive. There is no laboratory evidence of HCV infection. In most cases, no further action is required. However, if recent HCV exposure is suspected, a test for HCV RNA (test code 41732) is suggested. For additional information please refer to http://YOLLEGE.ZuzuChe/faq/FZT50d4 (This link is being provided for informational/ educational purposes only.) Blood Blood / Unknown 12/22/2022 9 :56 AM EDT 12/22/2022 9:57 AM EDT Narrative [employer] - 12/28/2022 6:19 PM EDT For additional information, please refer to http://YOLLEGE.ZuzuChe/faq/MRT627 (This link is being provided for informational/ educational purposes only.) Helena Espitia [facility] - BLOOD DRAW Final Re sult [employer] [address] [place] [id number], [employer] [address] [place] [id number] * THIN PREP PAP + HPV RNA E6/E7 (Q) (05/07/2021 10:41 AM EDT) CLINICAL INFORMATION See Note [employer] Comment:ROUTINE EXAM LMP See Note [employer] Comment:[id number] PREV. PAP [facility] PREV. BX See Note [facility] Comment:NONE GIVEN SOURCE See Note [employer] Comment:Cervix STATEMENT OF ADEQUACY See Note [employer] Comment: Satisfactory for evaluation. Endocervical/transformation zone component absent. INTERPRETATION/RESU LT See Note [employer] Comment:Negative for intraep ithelial lesion or malignancy. RED LEAD BURNER See Note [facility] Comment: KF, CT(ASCP) CT screening location: [address] [address] COMMENT [facility] HPV MRNA E6/E7 Not Detected Not Detected [facility] Comment: Methodology: Precipitator Operator-Mediated Amplification This assay detects E6/E7 viral messenger RNA (mRNA) from 14 high-risk HPV types (16,18,31,33,35,39,45,51,52,56,58,59,66,68). The analytical performance characteristics of this assay have been determined by [employer]. The modifications have not been cleared or approved by the FDA. This assay has been validated pursuant to the CLIA regulations and is used for clinical purposes. For additional information, please refer to http://education.ZuzuChe/faq/ZCK748g3 (This link if provided for information/ educational purposes only.) CYTOLOGY Cervix uteri structure / Unknown 05/07/2021 10:41 AM EDT 05/08/2021 6:38 PM EDT Narrative [facility] - 05/11/2021 4:29 PM EDT EXPLANATORY NOTE: The Pap is a screening test for cervical cancer. It is not a diagnostic test and is subject to false negative and false positive results. It is most reliable when a satisfactory sample, regularly obtained, is submitted with relevant clinical findings and history, and when the Pap result is evaluated along with historic and current clinical information. 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
[2025-06-29 17:39] LABS: Cannabinoid Screen Urine Not Detected (Not Detect)
[2025-06-29 18:31] VITALS: BP 132/58; PULSE 72; RESP 16; TEMP 36.7; O2SAT 96
== END 2025-06-29 18:32 | disposition home or self-care (01) ==
PROVIDERS: Physician Assistant Medical; Emergency Provider Emergency Medicine; PCP Dentist General Practice
DX: F10.90 Alcohol use, unspecified, uncomplicated (principal); Y90.5 Blood alcohol level of 100-119 mg/100 ml; Z51.81 Encounter for therapeutic drug level monitoring; Z71.41 Alcohol abuse counseling and surveillance of alcoholic
CPT/HCPCS: 36415; 80307; 99282; 99283